=== PATIENT | female | born 1940 | race Caucasian/White ===

== ENCOUNTER 2019-02-16 18:53 | Emergency (ER) | payer MEDICARE ==
[2019-02-16 19:10] VITALS: BP 140/43
== END 2019-02-16 20:23 | disposition left against medical advice (07) ==
LOC: ED 18:53
DX: R07.9 Chest pain, unspecified (principal); R94.31 Abnormal electrocardiogram [ECG] [EKG]; Z95.1 Presence of aortocoronary bypass graft; Z53.21 Procedure and treatment not carried out due to patient leaving prior to being seen by health care provider
CPT/HCPCS: 71045; 93005; 99281

== ENCOUNTER 2019-04-04 15:55 | Emergency (ER) | payer MEDICARE ==
[2019-04-04] MEDS ORDERED: Acetaminophen TAB* 325 MG PO ONE (16:29)
--- NOTE | 2019-04-04 16:29 | ED ---
Complex/Multi-Sys Presentation - HPI Summary HPI Summary: 78 year old F presenting to [facility] accompanied by daughter with a chief complaint of fever, chills, fatigue x1 day. The patient rates the pain 0/10 in severity. Symptoms aggravated by nothing. Symptoms alleviated by nothing. Patient reports productive cough. Daughter reports decreased appetite. Patient reports post-nasal drip. Patient denies abdominal pain, nausea, vomiting, diarrhea, dysuria, sore throat, ear pain. Daughter states that everybody in their house has been sick for the last week. Patient states she had a stent placed a few weeks ago at [facility]. Daughter reports chronic bilateral lower extremity swelling. - History Of Current Complaint Chief Complaint: EDFever Time Seen by Provider: 04/04/19 16:14 Hx Obtained From: Patient, Family/[employer] - Daughter Onset/Duration: Lasting Days - 1, Still Present Timing: Constant Severity Currently: None Aggravating Factor(s): Nothing Alleviating Factor(s): Nothing Associated Signs And Symptoms: Positive: Other - decreased appetite, post-nasal drip; NEG: abdominal pain, nausea, vomiting, diarrhea, dysuria, sore throat, ear pain. - Allergies/Home Medications Allergies/Adverse Reactions: Allergies Allergy/AdvReac Type Severity Reaction Status Date / Time Sulfa (Sulfonamide Allergy Rash Verified 04/04/19 16:05 Antibiotics) Home Medications: Home Medications Acetaminophen 325 mg PO Q4HR PRN 04/04/19 [History Confirmed 04/04/19] Atorvastatin* [Lipitor 80 MG*] 80 mg PO DAILY 04/04/19 [History Confirmed ] Cetirizine* [ZyrTEC 10 MG TAB*] 10 mg PO DAILY 04/04/19 [History Confirmed 04/04] Clopidogrel TAB* [Plavix TAB*] 75 mg PO DAILY 04/04/19 [History Confirmed ] Nitroglycerin 0.4 mg SL SEE INSTRUCTIONS PRN 04/04/19 [History Confirmed ] Ticagrelor* [Brilinta 90 MG*] 90 mg PO BID 04/04/19 [History Confirmed 04/04/19] amLODIPine TAB* [Norvasc 5 mg TAB*] 10 mg PO DAILY 04/04/19 [History Confirmed 04/04/19] PMH/Surg Hx/FS Hx/Imm Hx Previously Healthy: No Endocrine/Hematology History: Reports: Hx Diabetes Cardiovascular History: Reports: Hx Angina, Hx Hypercholesterolemia, Hx Hypertension, Hx Syncope Denies: Hx Pacemaker/ICD Respiratory History: Reports: Hx Asthma History: Denies: Hx Dialysis, Hx Renal Disease Sensory History: Reports: Hx Contacts or Glasses Denies: Hx Hearing Aid Opthamlomology History: Reports: Hx Contacts or Glasses Neurological History: Reports: Other Neuro Impairments/Disorders - peripheral diabetic neuropathy Psychiatric History: Denies: Hx Panic Disorder - Surgical History Surgery Procedure, Year, and Place: CABG - 2005. CARDIAC STENTS - 2012 ( RESOLUTE INTEGRITY STENT---CARD SCANNED INTO Octamer). [facility] - 2011. Stent March 2019 Infectious Disease History: No Infectious Disease History: Reports: Hx of Known/Suspected MRSA Denies: Traveled Outside the [place] in Last 30 Days - Family History Known Family History: Positive: Cardiac Disease, Hypertension, Other - Hypothyroidism Negative: Diabetes - Social History Alcohol Use: None Hx Substance Use: No Substance Use Type: Reports: None Hx Tobacco Use: No Smoking Status (MU): Never Smoked Tobacco Review of Systems Positive: Fever, Chills, Fatigue Positive: Other - post-nasal drip. Negative: Sore Throat, Ear Ache Positive: Other - decreased apeptite. Negative: Abdominal Pain, Vomiting, Diarrhea, Nausea Negative: dysuria All Other Systems Reviewed And Are Negative: Yes Physical Exam - Summary Physical Exam Summary: VITAL SIGNS: Reviewed. GENERAL: Patient is a well-developed and nourished FEMALE who is lying comfortable in the stretcher. Patient is not in any acute respiratory distress. HEAD AND FACE: No signs of trauma. No ecchymosis, hematomas or skull depressions. No sinus tenderness. EYES: PERRLA, EOMI x 2, No injected conjunctiva, no nystagmus. EARS: Hearing grossly intact. Ear canals and tympanic membranes are within normal limits. MOUTH: Dry oral mucosa NECK: Supple, trachea is midline, no adenopathy, no JVD, no carotid bruit, no c- spine tenderness, neck with full ROM. CHEST: Symmetric, no tenderness at palpation LUNGS: Crackles in bases of lungs CVS: Regular rate and rhythm, S1 and S2 present, no murmurs or gallops appreciated. ABDOMEN: Soft, non-tender. No signs of distention. No rebound no guarding, and no masses palpated. Bowel sounds are normal. EXTREMITIES: FROM in all major joints, no edema, no cyanosis or clubbing. NEURO: Alert and oriented x 3. No acute neurological deficits. Speech is normal and follows commands. SKIN: Dry and warm. Triage Information Reviewed: Yes Vital Signs On Initial Exam: Initial Vitals Temp Pulse Resp BP Pulse Ox 102.3 F 73 16 147/86 98 04/04/19 16:00 04/04/19 16:00 04/04/19 16:00 04/04/19 16:00 04/04/19 16:00 Vital Signs Reviewed: Yes Diagnostics - Vital Signs Vital Signs Temp Pulse Resp BP Pulse Ox 04/04/19 16:00 102.3 F 73 16 147/86 98 - Laboratory Result Diagrams: 04/04/19 17:01 04/04/19 17:01 Lab Statement: Any lab studies that have been ordered have been reviewed, and results considered in the medical decision making process. - Radiology CXR Radiology Interpretation Completed By: ED Physician Summary of Radiographic Findings: 1. Stigmata of obstructive lung disease. 2. Unchanged mild ardiomegaly. 3. No acute pulmonary or cardiac process evident. ED physician has reviewed this report. - EKG 1637 Cardiac Rate: NL - 64 BPM EKG Rhythm: Sinus Rhythm EKG Comparison: No Significant Change - 02/16/19 Summary of EKG Findings: Sinus rhythm at [address] elevations. Similar to previous EKG on 02/16/19. Complex Multi-Symp Course/Dx Assessment/Plan: 78 year old F presenting to [facility] accompanied by daughter with a chief complaint of fever, chills, fatigue x1 day. The patient rates the pain 0 /10 in severity. Symptoms aggravated by nothing. Symptoms alleviated by nothing. Patient reports productive cough. Daughter reports decreased appetite. Patient reports post-nasal drip. Patient denies abdominal pain, nausea, vomiting , diarrhea, dysuria, sore throat, ear pain. Daughter states that everybody in their house has been sick for the last week. Patient states she had a stent placed a few weeks ago at [facility]. Daughter reports chronic bilateral lower extremity swelling. In the ED course, the patient was placed on a cardiac/vascular sonographer, IV access was obtained, IV fluids were started. She is having productive cough therefore I started the patient on Rocephin. She was given Tylenol for the fever. Blood work without any significant abnormality except for sodium of 129, chloride 96, glucose 165, CRP 51.5. Urinalysis is negative for UTI. CXR impression: stigmata of obstructive lung disease. Unchanged cardiomegaly. No acute pulmonary or cardiac process evident. Therefore, I believe that the patient has an bronchitis versus early pneumonia. The patient also was given the Rocephin and well discharge the patient with azithromycin. The patient reports that she is feeling better and she agrees to be discharged home with follow-up with Primary care physician. I discussed all the findings and test results with the patient. Patient was instructed to return to the emergency room immediately if any of the symptoms return worsens. Plan of care was discussed with the patient and she understands and agrees. All questions were answered at patient satisfaction. There were no further complaints or concerns. Lung exam before discharge: CTA B/L. Good air exchange. No wheezing or crackles heard. CVS: S1 and S2 present. No murmurs appreciated. Patient is alert and oriented x 3. Patient is hemodynamically stable. Patient will be discharged home with follow up PCP in the next 2-3 days - Diagnoses Provider Diagnoses: Bronchitis Discharge - Sign-Out/Discharge Documenting (check all that apply): Patient Departure - Discharge Patient Received Moderate/Deep Sedation with Procedure: No - Discharge Plan Condition: Stable Disposition: HOME Prescriptions: Azithromycin TAB* [Zithromax TAB (Z-KARMA) 250 mg #6 tabs] 2 tab PO .TODAY, THEN 1 DAILY #1 karma Patient Education Materials: Acute Bronchitis (ED) Referrals: Bennie PULLIAM,Lula Barragan [Primary Care Provider] - 3 Days Additional Instructions: Follow up with your primary care provider in 3 days. Return to the Emergency Department for new or worsening symptoms. - Billing Disposition and Condition Condition: STABLE Disposition: Home - Attestation Statements Document Initiated by Scribe: Yes Documenting Scribe: Martha Su Provider For Whom Walter is Documenting (Include Credential): Naveed Peña MD Scribe Attestation: Martha Brooks, scribed for Naveed Peña MD on 04/04/19 at 1913. Scribe Documentation Reviewed: Yes Provider Attestation: The documentation as recorded by the scribMartha blanton accurately reflects the service I personally performed and the decisions made by , Naveed Peña MD Status of Scribe Document: Viewed
[2019-04-04] MEDS: NS 0.9% 1000 ML** 1,000 ML IV ONE ×3 (16:53→18:17)
[2019-04-04 17:11] LABS: ABS Lymphocytes 0.8 10^3/ul (1.0-4.8); ABS Monocytes 0.5 10^3/ul (0-0.8); ABS Neutrophils 6.6 10^3/ul (1.5-7.7); Hematocrit 35 % (35-47); Hemoglobin 11.9 g/dL (12.0-16.0); Mean Corpuscular HGB Conc 34 g/dL (31-36); Mean Corpuscular Hemoglobin 28 pg (27-31); Mean Corpuscular Volume 83 fL (80-97); Mean Platelet Volume 7.8 fL (7.4-10.4); Platelet Count 191 10^3/uL (150-450); Red Blood Count 4.21 10^6 /uL (3.70-4.87); Red Cell Distribution Width 14 % (10-15); White Blood Count 7.9 10^3/uL (3.5-10.8)
[2019-04-04 17:26] LABS: Urine Appearance Clear; Urine Bilirubin Negative (Negative); Urine Blood Negative (Negative); Urine Color Yellow; Urine Glucose Negative (Negative); Urine Ketones Negative (Negative); Urine Nitrite Negative (Negative); Urine Protein Negative (Negative); Urine Specific Gravity 1.016 (1.010-1.030); Urine Urobilinogen Negative (Negative)
[2019-04-04 17:31] LABS: Albumin 3.6 g/dL (3.2-5.2); Albumin/Globulin Ratio 1.5 (1-3); BUN/Creatinine Ratio 21.4 (8-20); C Reactive Protein 51.59 mg/L (<8.01); Calcium 8.8 mg/dL (8.6-10.3); EGFR African American 79.1 (>60); EGFR Non-African American 65.4 (>60); Globulin 2.4 g/dL (2-4); Potassium 3.9 mmol/L (3.5-5.0); Total Bilirubin 0.9 mg/dL (0.2-1.0)
[2019-04-04 17:33] LABS: Troponin I 0.01 ng/mL (<0.04)
[2019-04-04 17:35] LABS: CKMB ng/mL 0.7 ng/mL (0.6-6.3)
[2019-04-04] MEDS ORDERED: cefTRIAXone(*) 1 GM in NS 0.9% 50 ML* 50 ML IVPB ONE (17:35)
[2019-04-04 19:09] VITALS: BP 121/62
== END 2019-04-04 19:08 | disposition home or self-care (01) ==
LOC: ED 15:55
DX: J40 Bronchitis, not specified as acute or chronic (principal); E11.9 Type 2 diabetes mellitus without complications; I10 Essential (primary) hypertension; Z79.899 Other long term (current) drug therapy; Z79.01 Long term (current) use of anticoagulants; Z79.02 Long term (current) use of antithrombotics/antiplatelets
CPT/HCPCS: 36415; 71046; 80053; 81003; 82550; 82553; 83605; 83880; 84484; 85025; 85730; 86140; 87040; 93005; 96361; 96365; 99282; A9270-GY; J0696

== ENCOUNTER 2024-01-12 22:55 | Observation (INO) ==
[2024-01-12 23:35] LABS: ABS Basophils 0.1 10^3/uL (0.0-0.1); ABS Eosinophils 0.2 10^3/uL (0.0-0.5); ABS Monocytes 0.8 10^3/uL (0.0-0.9); ABS Neutrophils 9.6 10^3/uL (1.5-7.6); Eosinophil % 1.8 %; Hematocrit 34.7 % (35-45); Hemoglobin 11.8 g/dL (11.5-14.3); Lymphocyte % 15.5 %; Mean Corpuscular Hgb Conc 33.9 g/dL (31-36); Mean Corpuscular Volume 82.7 fL (80-97); Mean Platelet Volume 6.9 fL (7.5-11.2); Platelet Count 369 10^3/uL (150-450); Red Cell Distribution Width 14.3 % (12-17); White Blood Count 12.7 10^3/uL (3.8-11.8)
[2024-01-13 00:19] LABS: Albumin 4.3 g/dL (3.2-5.2); Albumin/Globulin Ratio 1.8 (1-3); C Reactive Protein 1.27 mg/L (<8.01); Calcium 9.3 mg/dL (8.6-10.3); Creatinine, Serum 1.35 mg/dL (0.51-0.95); Globulin 2.4 g/dL (2-4); Potassium 4.3 mmol/L (3.5-5.0); Total Bilirubin 0.5 mg/dL (0.2-1.0); Total Protein 6.7 g/dL (6.4-8.9); eGFR CKD-EPI 38.8 (>60)
[2024-01-13 00:22] LABS: Urine Appearance Turbid; Urine Bilirubin Negative (Negative); Urine Blood Negative (Negative); Urine Color Light-Yellow; Urine Glucose 3+ (>=300 mg/dL) (Negative); Urine Ketones Negative (Negative); Urine Nitrite Negative (Negative); Urine Protein Negative (Negative); Urine Specific Gravity 1.013 (1.002-1.030); Urine Urobilinogen Negative (Negative); Urine pH 5.5 (5.0-8.0)
[2024-01-13 00:37] LABS: Urine Bacteria Absent /HPF (Absent); Urine Red Blood Cell 1+(3-5/hpf) /HPF (0-Trace); Urine Renal Epithelial Cells Present /HPF (Absent); Urine Squamous Epithelial Cell Present /HPF (Absent); Urine Transitional Epithelial Present /HPF (Absent); Urine White Blood Cell 3+(>20/hpf) /HPF (0-Trace)
[2024-01-13 00:58] LABS: High Sensitivity Troponin 1 Hr 90 pg/mL (<15)
[2024-01-13] MEDS: Heparin DRIP 25,000 UNITS BAG 25,000 UNITS/250 ML BAG IV SCH (02:54)
[2024-01-13] MEDS: Heparin 5000 UNITS/ML 1 mL VIAL IV SCH (02:55)
[2024-01-13 04:44] LABS: Magnesium 1.9 mg/dL (1.9-2.7)
[2024-01-13] MEDS: cefTRIAXone 1 gm/50 mL D5W 1 GM/50 ML BAG IV ONE (04:51)
[2024-01-13] MEDS: Iodixanol (CONTRAST) 320 MG/ML 100 ML SDV IV ONE (05:38)
[2024-01-13 06:20] LABS: ABS Basophils 0.1 10^3/uL (0.0-0.1); ABS Eosinophils 0.4 10^3/uL (0.0-0.5); ABS Lymphocytes 2.9 10^3/uL (1.0-4.8); ABS Monocytes 0.9 10^3/uL (0.0-0.9); ABS Neutrophils 6.5 10^3/uL (1.5-7.6); ABS Nucleated RBC 0.01 10^3/ul; Eosinophil % 3.4 %; Hematocrit 32.4 % (35-45); Mean Corpuscular Hemoglobin 28.4 pg (27-33); Mean Corpuscular Hgb Conc 34.1 g/dL (31-36); Mean Corpuscular Volume 83.2 fL (80-97); Platelet Count 352 10^3/uL (150-450); Red Blood Count 3.89 10^6/uL (3.63-4.92); Red Cell Distribution Width 14.7 % (12-17); White Blood Count 10.7 10^3/uL (3.8-11.8)
[2024-01-13 06:58] LABS: Calcium 9.2 mg/dL (8.6-10.3); Creatinine, Serum 1.13 mg/dL (0.51-0.95); Potassium 4.1 mmol/L (3.5-5.0)
[2024-01-13] MEDS: Aspirin EC 81 mg TAB.EC (enteric coated) PO SCH (09:24)
[2024-01-13] MEDS: CMCS: SitaGLIPtin 100 mg TAB (NF) PO SCH (09:24)
[2024-01-13] MEDS: Isosorbide Mononit ER 60mg TAB PO SCH (09:25)
[2024-01-13] MEDS: NF: ICOSAPENT ETHYL 1 GM CAPSULE (NF) PO SCH (09:25)
[2024-01-13] MEDS ORDERED: Sulfur Hexaflouride MICROSPHR 25 MG VIAL ONE (10:00)
[2024-01-13] MEDS ORDERED: Regadenoson 0.4 MG/5 ML SYRINGE ONE (14:18)
[2024-01-14 04:45] LABS: ABS Basophils 0.1 10^3/uL (0.0-0.1); ABS Eosinophils 0.4 10^3/uL (0.0-0.5); ABS Monocytes 0.9 10^3/uL (0.0-0.9); ABS Neutrophils 5.2 10^3/uL (1.5-7.6); Eosinophil % 4.6 %; Hematocrit 33.1 % (35-45); Hemoglobin 11.2 g/dL (11.5-14.3); Lymphocyte % 31.3 %; Mean Corpuscular Hemoglobin 27.9 pg (27-33); Mean Corpuscular Hgb Conc 33.9 g/dL (31-36); Mean Corpuscular Volume 82.5 fL (80-97); Mean Platelet Volume 6.9 fL (7.5-11.2); Platelet Count 315 10^3/uL (150-450); Red Blood Count 4.01 10^6/uL (3.63-4.92); Red Cell Distribution Width 14.4 % (12-17); White Blood Count 9.6 10^3/uL (3.8-11.8)
[2024-01-14 05:28] LABS: Calcium 9.1 mg/dL (8.6-10.3); Magnesium 1.8 mg/dL (1.9-2.7); eGFR CKD-EPI 55.6 (>60)
[2024-01-14 10:32] VITALS: BP 116/94
[2024-01-14] MEDS: Magnesium Sulfate 2 gm BAG 2 GM/50 ML BAG IVPB ONE (10:59)
== END 2024-01-14 13:45 | disposition home or self-care (01) ==
LOC: ED 22:55 → EDHOLD 22:55 → SUATTDRO 01-13 02:21 → MEDTELE 01-13 02:35
PROVIDERS: ADMIT Internal Medicine; ATTEND Internal Medicine